=== PATIENT | female | born 1990 | race African-American/Black ===

== ENCOUNTER 2021-04-09 08:50 | Emergency (ER) | payer MEDICAID ==
[~2021-04-09] VITALS: Ht 157.5 cm; Wt 88.0 kg
[~2021-04-09 08:50] MED LIST: ALBU2.5V13 IH
[2021-04-09 09:08] VITALS: BP 106/52
[2021-04-09 11:03] LABS: CLARITY URINE CLOUDY (CLEAR); COLOR URINE YELLOW (YELLOW); KETONES URINE NEGATIVE (NEGATIVE); LEUKOCYTE ESTERASE URINE 1+ (NEGATIVE); NITRITE URINE NEGATIVE (NEGATIVE); OCCULT BLOOD URINE NEGATIVE (NEGATIVE); PH URINE 5.5 (4.5-8.0); PROTEIN URINE NEGATIVE (NEGATIVE); SPECIFIC GRAVITY URINE 1.019 (1.005-1.030); UROBILINOGEN URINE 0.2 E.U./dL (0.2-1.0)
[2021-04-09 12:23] LABS: BASOPHILS % 0.6 % (0.0-2.0); HEMOGLOBIN. 12.7 g/dL (12.0-16.0); MEAN CORPUSCULAR HEMOGLOBIN 25.7 pg (28.0-32.0); MEAN CORPUSCULAR VOLUME 77.1 fL (81.0-99.0); MEAN PLATELET VOLUME 8.4 fl (7.4-10.4); MONOCYTES % 5.7 % (2.0-8.0); NEUTROPHILS % 59.7 % (40.0-76.0); PLATELET 330 x1000/uL (130-400); RED BLOOD CELL COUNT 4.93 mill/uL (4.2-5.4); RED CELL DISTRIBUTION WIDTH 16.4 % (11.6-14.6)
[2021-04-09 12:41] LABS: CHLORIDE 105 mEq/L (98-107)
[2021-04-09 13:05] LABS: B-HCG QUANTITATIVE 28328 mIU/mL (<3)
[2021-04-09] MEDS ORDERED: CEPH250C2 MT (13:12)
== END 2021-04-09 13:32 | disposition home or self-care (01) ==
LOC: ER 08:50
DX: U07.1 COVID-19 (principal)
CPT/HCPCS: 36415; 76801; 76817; 80053; 81003; 81025; 83690; 84702; 85025; 86850; 86900; 86901; 87804; 99284; C9803; U0003; U0005